=== PATIENT | female | born 1930 | race Caucasian/White ===

== ENCOUNTER 2016-08-10 11:06 | Emergency (ER) | payer OTHER ==
[~2016-08-10] VITALS: Ht 167.6 cm; Wt 81.7 kg
[~2016-08-10 11:06] MED LIST: ALTACE 1.25 M1.25 M1 PO; ASPIRIN325 PO; ATORVASTATIN CA40 MG PO; GEMFIBROZIL 60600 MG PO; GLUCOTROL5 MG PO; GLUMETZA500 PO; MIRALAX255 GM; NABUMETONE 750750 M1 PO; NASONEX17 GM NS; NEURONTIN 300300 M1 PO; OMEGA-31000 M1 PO; TRIPLE FLEX CA1 EACH PO; [UNRECOGNIZED DRUG - OTHER]
[2016-08-10 11:26] LABS: URINE BILIRUBIN NEGATIVE (Negative); URINE BLOOD 2+ (Negative); URINE COLOR YELLOW; URINE GLUCOSE-RANDOM* NEGATIVE (Negative); URINE KETONES NEGATIVE (Negative); URINE LEUKOCYTES-REFLEX 3+ (Negative); URINE PROTEIN (DIPSTICK) TRACE (Negative); URINE SPECIFIC GRAVITY <= 1.005 (1.003-1.035); URINE UROBILINOGEN 0.2 E.U./dl (0.2-1.0)
[2016-08-10] MEDS ORDERED: FLOMAX0.4 MG PO (11:43)
[2016-08-10] MEDS ORDERED: ACETAMINOPHEN-1 EAC1 PO (11:43)
[2016-08-10 11:52] LABS: AMORPHOUS URATES Moderate /LPF (None Seen); URINE WBC-REFLEX >25 Many /HPF (0-5)
[2016-08-10 11:53] LABS: CASTS None Seen /LPF (None Seen); SQUAMOUS 0-3 Few /LPF (0-3)
[2016-08-10 11:59] VITALS: BP 178/82
== END 2016-08-10 12:06 | disposition home or self-care (01) ==
LOC: ER 11:06
PROVIDERS: Emergency Medicine
DX: R33.9 Retention of urine, unspecified (principal); T37.5X5A Adverse effect of antiviral drugs, initial encounter; T40.4X5A Adverse effect of other synthetic narcotics, initial encounter; B02.9 Zoster without complications; E11.9 Type 2 diabetes mellitus without complications; I10 Essential (primary) hypertension; Z98.890 Other specified postprocedural states; Z88.2 Allergy status to sulfonamides; Y92.89 Other specified places as the place of occurrence of the external cause

== ENCOUNTER 2018-01-12 09:42 | Inpatient (IN) | payer OTHER ==
[~2018-01-12] VITALS: Ht 167.6 cm; Wt 79.9 kg
--- NOTE | ~2018-01-12 | HC ---
[facility] [place] [address] CONSULTATION Name: JASEN GREEN Room #: 451-P [facility] IN M.R.#: [id number] Admission: 01/12/18 Attend Phys: Nathanael Smith MD Discharge: 01/16/18 Date of : 30 Report #: [id number] THIS REPORT FOR: //name// CC: Janeth Darden Nathanael Smith DATE OF SERVICE: 01/13/2018 HISTORY OF PRESENT ILLNESS: This is an 87-year-old female patient who was evaluated by me for any neurological etiology for the patient's syncope. The patient lives with her daughter. They have been living together for a long time. The patient developed Alzheimer's. She was diagnosed with Alzheimer's in about 2014. She is still able to recognize close family, but otherwise, her memory is extremely poor. From all indications, it looks like she has severe dementia. Her memory has become worse recently and it was noticed about 2-3 weeks ago. Family does not know what made the memory worse, but it looks like she underwent a CT scan and that indicated that she may have had a small stroke in the frontal area. She also has multiple other issues, which are being addressed, like increased WBC count and what looks like UTI. REVIEW OF SYSTEMS: Positive for advanced dementia. She lives with her daughter. She did have some urinary problems this time. She is hard of hearing. She has a history of herpes zoster. She does appear to have a urinary tract infection with increased WBC. She has a prior hip replacement surgery. She has a history of obstructive sleep apnea and degenerative joint disease. This was her relevant 14-point review of systems. She indicates she is not having any new eye, chest, respiratory, GI, , musculoskeletal, constitutional, dermatological, hematological, psychiatric, throat or allergic symptom associated with present symptomatology. PAST MEDICAL HISTORY: Positive for dementia. FAMILY HISTORY: Negative for early age stroke. SOCIAL HISTORY: She does not drink any alcohol. PHYSICAL EXAMINATION: The patient's examination indicates that the patient is alert, responsive. She does not know what month it is. She does not know what day it is. She does not know what hospital she is in. She knew the name of the daughter, but did not know her date of . Her speech and fund of knowledge are markedly diminished. She cannot name the president. Cranial nerve examination 2-12 looks mostly unremarkable. Strength, sensation, reflexes and tone looks symmetrical. There is no cerebellar sign. I could not look at the patient's fundus. There is no meningeal sign. There is no carotid bruit. There is no thyroid mass. She is moderately obese individual, who does not have [address] [address] CONSULTATION Name: JASEN GREEN Room #: 451-P [facility] IN M.R.#: [id number] Admission: 01/12/18 Attend Phys: Nathanael Smith MD Discharge: 01/16/18 Date of : 30 Report #: [id number] any marked dysmorphic features of eyes, ears and face. Pulses are difficult to feel. No marked respiratory difficulty was noted, although some rhonchi are present on both sides. Blood pressure has fluctuated in this patient. The last one was 176/68, but it has been as low as 95. LABORATORY DATA: Labs indicate increased white count. Her GFR is 25. Her BUN and creatinine have gone up, present in the urinary tract infection. CT scan was reviewed that showed probable stroke in the right frontal area. Carotid showed bilateral disease. IMPRESSION: 1. Advanced baseline dementia. 2. Possible frontal lobe stroke. 3. Urinary tract infection which will cause encephalitis in a patient like this. This patient's present symptomatology were most likely secondary to the systemic causes including urinary tract infection, which will cause encephalopathy in a patient like this, fluctuating blood pressure and other cardiac abnormalities including vasovagal spell, which may be present. RECOMMENDATIONS: 1. EEG. 2. MRI. 3. Workup for the stroke for secondary stroke prophylaxis. 4. Treatment of systemic conditions, especially hypercholesterolemia, some hypothyroidism, UTI and looking for any cardiac or other etiology for the patient's symptoms. I discussed all of it with the patient's daughter and the patient and they understand that. Thank you very much for this referral. <ELECTRONICALLY SIGNED> By: Jorden Vasquez MD 01/20/18 1541 0901 1102 Jorden Vasquez MD /nt
--- NOTE | ~2018-01-12 | EEG ---
[facility] [place] [address] ELECTROENCEPHALOGRAM Name: JASEN GREEN Room #: 451-P [facility] IN M.R.#: [id number] Admission: 01/12/18 Attend Phys: Nathanael Smith MD Discharge: 01/16/18 Date of : 30 Report #: [id number] THIS REPORT FOR: //name// CC: Janeth Darden Nathanael Smith DATE OF SERVICE: 01/13/2018 This patient is being evaluated for altered mental status. EEG was done by placing the electrodes by standard 10-20 system of electrode placement. Both referential and sequential montages were used for recording. Background activity in this patient's EEG is about 8-9 Hz and 30 microvolt. The patient went to sleep that is associated with bilaterally symmetrical sleep spindle and vertex sharp waves. Photic stimulation is unremarkable. Throughout the record, no active epileptiform activity was noticed. IMPRESSION: This patient's EEG is intermixed with some theta range slowing on both sides. That is a nonspecific abnormality, which can occur with encephalopathy, effect of psychotropic medication, dementia, etc. Clinical correlation is recommended. <ELECTRONICALLY SIGNED> By: Jorden Vasquez MD 01/20/18 1541 0916 0944 Jorden Vasquez MD /nt
--- NOTE | ~2018-01-12 | EKG ---
[address] [place] [address] ELECTROCARDIOGRAM REPORT Name: JASEN GREEN Room #: REG Dolly#: [id number] Admission: 01/12/18 Attend Phys: Discharge: Date of : 30 Report #: [id number] THIS REPORT FOR: //name// [facility] ED Test Date: 2018-01-12 Test Time: 09:54:10 Pat Name: JASEN GREEN Department: Room: Gender: F Enrollment Manager: : 1930 Requested By: Jim Peterson Order Number: [id number] MD: Cyrus Sosa Measurements Intervals [place] Rate: 63 P: [place]: QRS: 4 QRSD: 104 T: 61 QT: 457 QTc: 468 Interpretive Statements Junctional rhythm Incomplete right bundle branch block Before meals noise present Compared to ECG 03/05/2013 05:53:14 No significant changes Electronically Signed On 01-12-2018 10:19:51 VETERINARY PHYSIOLOGIST by Cyrus Sosa [email or web address] <ELECTRONICALLY SIGNED> By: Cyrus Sosa MD 01/12/18 1019 0954 0954 Cyrus Sosa MD /JIM
--- NOTE | ~2018-01-12 | 2DMMODE ---
[facility] [address] [place] [address] 2 D/M-MODE ECHOCARDIOGRAM Name: JASEN GREEN Room #: 451-P ADM IN M.R.#: [id number] Admission: 01/12/18 Attend Phys: Nathanael Smith MD Discharge: Date of : 30 Date of Service: 01/15/18 1048 Report #: [id number] THIS REPORT FOR: //name// APPROVED REPORT Study performed: 01/15/2018 09:45:25 EXAM: Comprehensive 2D, Doppler, and color-flow Echocardiogram Patient Location: Bedside Room #: [facility] Status: routine BSA: 1.87 HR: 82 bpm BP: 134/79 mmHg Rhythm: NSR/Irregular Other Information Study Quality: Fair Technically limited study due to no patient cooperation and lung artifact with heavy snoring.. Indications CVA. Hx: DM, HTN. Echo Enhancing Agent Indication: Rule out Shunt Agent(s) / Amount(s) Used: Agitated Saline 12 cc 2D Dimensions RVDd: 30.86 mm IVSd: 13.49 (7-11mm) LVOT Diam: 18.65 (18-24mm) LVDd: 38.98 mm PWd: 8.48 (7-11mm) LVDs: 25.21 (25-40mm) Aortic Root: 31.41 mm Volumes Left Atrial Volume (Systole) Single Plane 4CH: 28.05 mL Single Plane 2CH: 37.14 mL LA ESV Index: 19.00 mL/m2 Aortic Valve AoV Peak Calvin.: 1.68 m/s AO Peak Gr.: 11.26 mmHg LVOT Max P.23 mmHg LVOT Max V: 1.52 m/s [facility] [place] [address] 2 D/M-MODE ECHOCARDIOGRAM Name: JASEN GREEN Room #: 451-P ADM IN .R.#: [id number] Admission: 01/12/18 Attend Phys: Nathanael Smith MD Discharge: Date of : 30 Date of Service: 01/15/18 1048 Report #: [id number] MICHAEL Vmax: 2.47 cm2 Mitral Valve E/A Ratio: 1.3 MV Decel. Time: 273.98 ms MV E Max Calvin.: 0.94 m/s MV A Calvin.: 0.73 m/s MV PHT: 79.45 ms IVRT: 73.82 ms Pulmonary Valve PV Peak Calvin.: 1.23 m/s PV Peak Gr.: 6.09 mmHg Tricuspid Valve TR Peak Calvin.: 3.39 m/s RAP Estimate: 5.00 mmHg TR Peak Gr.: 45.97 mmHg PA Pressure: 51.00 mmHg Left Ventricle The left ventricle is normal size. Mild basal septal hypertrophy is present. Left ventricular systolic function is normal. LVEF is 65%. This study is not technically sufficient to allow evaluation of the LV diastolic function due to limited patient cooperation. Right Ventricle The right ventricle is normal size. The right ventricular systolic function is normal. Atria The left atrium size is normal. No shunting noted by contrast bubble injection. The right atrium size is normal. Aortic Valve The Aortic valve is sclerotic. No aortic regurgitation is present. There is no aortic valvular stenosis. Mitral Valve The mitral valve is normal in structure. Mild mitral annular calcification. Trace mitral regurgitation. Tricuspid Valve The tricuspid valve is normal in structure. Mild to moderate tricuspid regurgitation. Estimated PAP is 50-55mmHg. Pulmonic Valve Pulmonic valve is not well visualized. Trace pulmonic [facility] [address] [place] [address] 2 D/M-MODE ECHOCARDIOGRAM Name: JASEN GREEN Room #: 451-P [facility] IN M.R.#: [id number] Admission: 01/12/18 Attend Phys: Nathanael Smith MD Discharge: Date of : 30 Date of Service: 01/15/18 1048 Report #: [id number] regurgitation. Great Vessels The aortic root is normal in size. Ascending aorta is not well visualized. IVC is normal in size and collapses >50% with inspiration. Pericardium There is no pericardial effusion. <Conclusion> The left ventricle is normal size. Mild basal septal hypertrophy is present. LVEF is 65%. This study is not technically sufficient to allow evaluation of the LV diastolic function due to limited patient cooperation. The right ventricle is normal size. The left atrium size is normal. The Aortic valve is sclerotic. There is no aortic valvular stenosis. The mitral valve is normal in structure. Mild mitral annular calcification. Trace mitral regurgitation. Mild to moderate tricuspid regurgitation. Estimated PAP is 50-55mmHg. The aortic root is normal in size. There is no pericardial effusion. <ELECTRONICALLY SIGNED> By: Paresh Chandler MD, FACC 01/15/18 1048 1048 1048 Paresh Chandler MD, FACC /INF
[~2018-01-12 09:42] MED LIST changes: +ACETAMINOPHEN-1 EAC1 PO; +FLOMAX0.4 MG PO
[2018-01-12 09:43] VITALS: BP 97/59
[2018-01-12] MEDS ORDERED: SENSIPAR 30 MG30 M1 PO (10:01)
[2018-01-12] MEDS ORDERED: ARICEPT 5 MG TAB5 MG PO (10:01)
[2018-01-12] MEDS ORDERED: TRADJENTA5 MG (10:01)
[2018-01-12] MEDS ORDERED: PIROXICAM20 MG PO (10:01)
[2018-01-12 10:30] LABS: ABSOLUTE NEUTROPHILS 13.2 thou/uL (1.4-8.2); BASOPHILS 0.7 % (0.0-2.0); EOSINOPHILS 3.2 % (0.0-3.0); HEMATOCRIT 40.8 % (37.0-47.0); HEMOGLOBIN 13.8 gm/dL (12.0-15.0); LYMPHOCYTES 7.5 % (24.0-44.0); MCH 30.6 pg (26.0-34.0); MCHC 33.7 g/dL (28.0-37.0); MCV 90.8 fL (80.0-100.0); MONOCYTES 4.2 % (1.0-8.0); PLATELET COUNT 269 thou/uL (150-400); POLYS 84.4 % (36.0-66.0); RBC 4.49 mil/uL (4.20-5.00); RDW 14.1 % (10.5-14.5); WBC 15.6 thou/uL (4.0-11.0)
[2018-01-12 10:31] LABS: URINE BILIRUBIN NEGATIVE (Negative); URINE BLOOD 3+ (Negative); URINE CLARITY CLOUDY; URINE COLOR YELLOW; URINE GLUCOSE-RANDOM* NEGATIVE (Negative); URINE KETONES NEGATIVE (Negative); URINE LEUKOCYTES 3+ (Negative); URINE NITRITE NEGATIVE (Negative); URINE PROTEIN (DIPSTICK) 1+ (Negative); URINE UROBILINOGEN 0.2 E.U./dl (0.2-1.0)
[2018-01-12 10:42] LABS: ANION GAP 9 mmol/L (7-16); BUN 37 mg/dL (7-18); CALCIUM 8.6 mg/dL (8.5-10.1); CHLORIDE 106 mmol/L (98-107); CO2 27 mmol/L (21-32); CREATININE 1.9 mg/dL (0.6-1.0); GLUCOSE 164 mg/dL (74-106); POTASSIUM 3.7 mmol/L (3.5-5.1); SODIUM 142 mmol/L (136-145)
[2018-01-12 10:43] LABS: AMORPHOUS URATES Many /LPF (None Seen); CASTS None Seen /LPF (None Seen); SQUAMOUS 0-3 Few /LPF (0-3); URINE RBC 3-10 Few /HPF (0-2); URINE WBC >25 Many /HPF (0-5)
[2018-01-12 10:54] LABS: SGOT 24 U/L (15-37); SGPT 29 U/L (30-65); TOTAL BILIRUBIN 0.4 mg/dL (<0.1-1.0); TOTAL PROTEIN 6.7 g/dL (6.4-8.2); TROPONIN-I <0.06 ng/mL (<0.06)
[2018-01-12 12:04] VITALS: BP 95/62
[2018-01-12 14:23] LABS: FOLIC ACID 6.8 ng/mL (8.6-58.9); TSH 8.238 uIU/mL (0.358-3.740)
[2018-01-12 15:41] VITALS: BP 116/49
[2018-01-12 16:21] VITALS: BP 93/55
[2018-01-13 03:38] VITALS: BP 106/58
[2018-01-13 06:21] LABS: CHOLESTEROL 167 mg/dL (<200); HDL CHOLESTEROL 43 mg/dL (>40); LDL CHOLESTEROL 105 mg/dL (<100); SERUM ASSESSMENT Clear; TC:HDL 3.9 Ratio (Not establshd); TRIGLYCERIDE 97 mg/dL (<150); VLDL 19 mg/dL (<40)
[2018-01-13 07:55] VITALS: BP 176/68
[2018-01-13 10:26] LABS: ABSOLUTE NEUTROPHILS 10.2 thou/uL (1.4-8.2); BASOPHILS 2.1 % (0.0-2.0); EOSINOPHILS 3.1 % (0.0-3.0); LYMPHOCYTES 13.8 % (24.0-44.0); MCH 31.1 pg (26.0-34.0); MCV 91.5 fL (80.0-100.0); MONOCYTES 4.4 % (1.0-8.0); PLATELET COUNT 280 thou/uL (150-400); POLYS 76.6 % (36.0-66.0); RBC 4.48 mil/uL (4.20-5.00); RDW 13.8 % (10.5-14.5); WBC 13.4 thou/uL (4.0-11.0)
[2018-01-13 10:30] LABS: CALCIUM 8.9 mg/dL (8.5-10.1); CREATININE 1.7 mg/dL (0.6-1.0); MAGNESIUM 1.9 mg/dL (1.8-2.4); POTASSIUM 3.6 mmol/L (3.5-5.1)
[2018-01-13 19:44] VITALS: BP 122/76
[2018-01-14 03:58] VITALS: BP 143/68
[2018-01-14 05:54] LABS: BASOPHILS 0.8 % (0.0-2.0); EOSINOPHILS 3.8 % (0.0-3.0); HEMATOCRIT 36.6 % (37.0-47.0); HEMOGLOBIN 12.4 gm/dL (12.0-15.0); LYMPHOCYTES 13.3 % (24.0-44.0); MCH 31.1 pg (26.0-34.0); MCHC 33.8 g/dL (28.0-37.0); MONOCYTES 5.9 % (1.0-8.0); PLATELET COUNT 253 thou/uL (150-400); POLYS 76.2 % (36.0-66.0); RBC 3.99 mil/uL (4.20-5.00); RDW 13.9 % (10.5-14.5); WBC 11.8 thou/uL (4.0-11.0)
[2018-01-14 06:11] LABS: CALCIUM 8.5 mg/dL (8.5-10.1); CREATININE 1.8 mg/dL (0.6-1.0); MAGNESIUM 1.8 mg/dL (1.8-2.4); POTASSIUM 3.6 mmol/L (3.5-5.1)
[2018-01-14 08:00] VITALS: BP 124/79
[2018-01-14 15:14] VITALS: BP 116/84
[2018-01-14 19:22] VITALS: BP 110/67
[2018-01-15 01:15] VITALS: BP 135/79
[2018-01-15 07:10] VITALS: BP 134/79
[2018-01-15 15:00] VITALS: BP 195/81
[2018-01-15 20:40] VITALS: BP 199/76
[2018-01-16 01:02] VITALS: BP 142/75
[2018-01-16 03:42] VITALS: BP 152/86
[2018-01-16 05:53] LABS: ABSOLUTE NEUTROPHILS 9.4 thou/uL (1.4-8.2); BASOPHILS 1.3 % (0.0-2.0); HEMATOCRIT 40.8 % (37.0-47.0); LYMPHOCYTES 9.6 % (24.0-44.0); MCHC 34.3 g/dL (28.0-37.0); MCV 90.4 fL (80.0-100.0); MONOCYTES 7.5 % (1.0-8.0); PLATELET COUNT 252 thou/uL (150-400); POLYS 77.6 % (36.0-66.0); RBC 4.52 mil/uL (4.20-5.00); WBC 12.1 thou/uL (4.0-11.0)
[2018-01-16 06:04] LABS: CALCIUM 9.3 mg/dL (8.5-10.1); CREATININE 1.6 mg/dL (0.6-1.0); MAGNESIUM 1.8 mg/dL (1.8-2.4); POTASSIUM 3.6 mmol/L (3.5-5.1)
[2018-01-16 07:16] VITALS: BP 152/90
[2018-01-16 13:53] VITALS: BP 163/95
[2018-01-16 15:45] VITALS: BP 163/95
[2018-01-16 17:25] VITALS: BP 128/76
[2018-01-16] MEDS ORDERED: ACETAMINOPHEN325 M1 PO (17:26)
[2018-01-16] MEDS ORDERED: METOPROLOL SUCC25 M1 PO (17:26)
[2018-01-16] MEDS ORDERED: CEFUROXIME250 MG PO (17:26)
[2018-01-16] MEDS ORDERED: CLOPIDOGREL75 MG PO (17:26)
[2018-01-16] MEDS ORDERED: FOLIC ACID 40400 MC1 PO (17:26)
[2018-01-16] MEDS ORDERED: PEPCID20 MG PO (17:26)
== END 2018-01-16 21:53 | disposition home health service (06) | DRG 64 ==
LOC: ER 09:42 → EROBS 12:00 → 4W 12:00
PROVIDERS: Emergency Medicine; Internal Medicine; Nurse Practitioner
DX: I63.9 Cerebral infarction, unspecified (principal); E43 Unspecified severe protein-calorie malnutrition; N17.9 Acute kidney failure, unspecified; N39.0 Urinary tract infection, site not specified; G93.49 Other encephalopathy; K59.09 Other constipation; N18.9 Chronic kidney disease, unspecified; H91.90 Unspecified hearing loss, unspecified ear; E11.22 Type 2 diabetes mellitus with diabetic chronic kidney disease; E78.00 Pure hypercholesterolemia, unspecified; E03.9 Hypothyroidism, unspecified; M62.84 Sarcopenia; E78.5 Hyperlipidemia, unspecified; I95.9 Hypotension, unspecified; E86.0 Dehydration; R19.7 Diarrhea, unspecified; I12.9 Hypertensive chronic kidney disease with stage 1 through stage 4 chronic kidney disease, or unspecified chronic kidney disease; G30.9 Alzheimer's disease, unspecified; F02.80 Dementia in other diseases classified elsewhere, unspecified severity, without behavioral disturbance, psychotic disturbance, mood disturbance, and anxiety; M19.90 Unspecified osteoarthritis, unspecified site; G47.33 Obstructive sleep apnea (adult) (pediatric); Z90.49 Acquired absence of other specified parts of digestive tract; Z98.41 Cataract extraction status, right eye; Z98.42 Cataract extraction status, left eye; Z87.891 Personal history of nicotine dependence; Z79.82 Long term (current) use of aspirin; Z79.899 Other long term (current) drug therapy; Z79.84 Long term (current) use of oral hypoglycemic drugs; Z88.2 Allergy status to sulfonamides; Z68.28 Body mass index [BMI] 28.0-28.9, adult
CPT/HCPCS: 10040; 10045

== ENCOUNTER 2018-02-10 22:46 | Inpatient (IN) | payer OTHER ==
[~2018-02-10] VITALS: Ht 167.6 cm; Wt 76.6 kg
--- NOTE | ~2018-02-10 | EKG ---
[address] [place] [address] ELECTROCARDIOGRAM REPORT Name: JASEN GREENN Room #: 238- ADM IN M.R.#: [id number] Admission: 02/11/18 Attend Phys: Salomón Mckeon MD Discharge: Date of : 30 Report #: [id number] THIS REPORT FOR: //name// [facility] Test Date: 2018-02-12 Test Time: 07:20:26 Pat Name: JASEN GREEN Department: Room: 238 Gender: F Border Patrol Agent: ABDOUL : 1930 Requested By: Deven Mota Order Number: [id number] MD: Deven Mota Measurements Intervals [place] Rate: 130 P: 0 IN: 223 QRS: 39 QRSD: 122 T: -15 QT: 351 QTc: 516 Interpretive Statements Atrial fibrillation with a rapid ventricular response Nonspecific ST and T wave abnormality Compared to ECG 02/11/2018 07:50:21 Heart rate has increased Electronically Signed On 02-12-2018 9:02:46 ACID BATH MIXER by Deven Mota [email or web address] <ELECTRONICALLY SIGNED> By: Deven Mota MD, [facility] 02/12/18901 9 9 Deven Mota MD, [facility] /EPI
--- NOTE | ~2018-02-10 | EKG ---
[address] [facility] [place] [address] ELECTROCARDIOGRAM REPORT Name: JASEN GREENN Room #: 238- ADM IN M.R.#: [id number] Admission: 02/11/18 Attend Phys: Salomón Mckeon MD Discharge: Date of : 30 Report #: [id number] THIS REPORT FOR: //name// [facility] Test Date: 2018-02-11 Test Time: 07:50:21 Pat Name: JASEN GREEN Department: Room: 238 P Gender: F Financial Data Analyst: ALIA : 1930 Requested By: Deven Mota Order Number: [id number] MD: Deven Mota Measurements Intervals [place] Rate: 96 P: CT: QRS: 4 QRSD: 90 T: -1 QT: 372 QTc: 471 Interpretive Statements Atrial fibrillation Poor R wave progression Nonspecific ST segment abnormality Compared to ECG 01/12/2018 09:54:10 Heart rate has slowed Electronically Signed On 02-11-2018 10:41:45 NUCLEAR PLANT OPERATOR by Deven Mota [email or web address] <ELECTRONICALLY SIGNED> By: Deven Mota MD, [facility] 02/11/18 1041 0750 0750 Deven Mota MD, [facility] /EPI
--- NOTE | ~2018-02-10 | HC ---
[facility] [place] [address] CONSULTATION Name: JASEN GREEN Room #: 238-P ADM IN M.R.#: [id number] Admission: 02/11/18 Attend Phys: Salomón Mckeon MD Discharge: Date of : 30 Report #: [id number] THIS REPORT FOR: //name// CC: FAM unknown Salomón Mckeon REASON FOR CONSULTATION: Atrial fibrillation. HISTORY OF PRESENT ILLNESS: The patient is an 87-year-old woman with hypertension, diabetes and advanced dementia. She has had several recent hospitalizations. The hospitalization in December was for altered mental status and possible syncope. Her history comes from the nursing staff and medical records as she is very confused, disoriented and has advanced dementia. She is unable to give much of a meaningful history. Apparently, she was sitting on the commode and slumped over. It is not clear whether she lost consciousness or not. She presented to the Emergency Department where she was in atrial fibrillation with a rapid ventricular response. I was asked to see her in this regard. After being placed on Cardizem, she had had significantly improved heart rate. She denies chest pain or pressure. She denies palpitations. She reports that her knees hurt. ALLERGIES: SHE IS ALLERGIC TO SULFA. CURRENT MEDICATIONS: Include Plavix, Pepcid, folic acid, glipizide 5 mg daily, atorvastatin 40 mg daily, gabapentin 300 mg twice daily, Tradjenta, Aricept 5 mg daily, amlodipine 2.5 mg daily. PAST MEDICAL HISTORY: Notable for appendectomy, diabetes, hypertension. Sleep apnea, on CPAP. Severe arthritis, cataract repair. SOCIAL HISTORY: She reports that she lives with her in her own home, although I do not believe this is accurate, there are reports that she lives with her daughter at home. FAMILY HISTORY: Not obtainable. REVIEW OF SYSTEMS: Not thought to be reliable. PHYSICAL EXAMINATION: GENERAL: Reveals an elderly woman who is alert. VITAL SIGNS: Blood pressure is 111/70, heart rate is 76 and irregular. She is afebrile, 5 feet 6 inches tall, 168 pounds. HEENT: There are neither xanthelasma, subcutaneous xanthomata, oral mucosal or digital cyanosis or kyphoscoliosis present. CHEST: Clear to auscultation and percussion. CARDIAC: An irregularly irregular rhythm with normal S1, S2. ABDOMEN: Soft and nontender. [facility] [address] [place] [address] CONSULTATION Name: JASEN GREEN Room #: 238-P [facility] IN M.R.#: [id number] Admission: 02/11/18 Attend Phys: Salomón Mckeon MD Discharge: Date of : 30 Report #: [id number] EXTREMITIES: Without cyanosis, clubbing or edema. Radial pulses are 2+. NEUROLOGIC: She is alert with a nonfocal exam. LABORATORY DATA: EKG: Atrial fibrillation with a rapid ventricular response. Recent echocardiogram is normal with the exception of mild aortic sclerosis and a pulmonary artery pressure of 50-55 mmHg. Sodium is 141, potassium 4.2, creatinine 1.9, which is at or near her baseline. ProBNP of 1743. Troponin 0.21. White count 17,000, hemoglobin 13, hematocrit 39, and platelet count 269. Urinalysis demonstrates greater than 25 white blood cells per high powered field. Chest x-ray is normal. Head CT demonstrates microvascular changes. IMPRESSION: 1. Atrial fibrillation with a rapid ventricular response. 2. Possible near syncope. 3. Obstructive sleep apnea, on CPAP. 4. Diabetes. 5. Dyslipidemia. 6. Advanced dementia. 7. Chronic kidney disease. 8. Urinary tract infection. RECOMMENDATIONS: Change from intravenous to oral Cardizem. I have reviewed her recent echocardiogram, which demonstrates normal systolic function. In this elderly woman with multiple comorbidities and advanced dementia with frequent falls, I believe anticoagulant therapy poses prohibitively high risk. Thank you for asking me to participate in her care. <ELECTRONICALLY SIGNED> By: Deven Mota MD, [facility] 02/11/18 1033 0747 0857 Deven Mota MD, FACC /nt
--- NOTE | ~2018-02-10 | EKG ---
[address] [address] ELECTROCARDIOGRAM REPORT Name: JASEN GREENELYN Room #: 238-P ADM IN M.R.#: [id number] Admission: 02/11/18 Attend Phys: Salomón Mckeon MD Discharge: Date of : 30 Report #: [id number] THIS REPORT FOR: //name// [facility] ED Test Date: 2018-02-10 Test Time: 22:54:11 Pat Name: JASEN GREEN Department: Room: 238 Gender: F Electronic Systems Technician: ANA : 1930 Requested By: Salomón Mckeon Order Number: [id number] MD: Deven Mota Measurements Intervals [place] Rate: 125 P: NE: QRS: 24 QRSD: 96 T: 20 QT: 361 QTc: 521 Interpretive Statements Atrial fibrillation Right ventricular conduction delay Prolonged QT interval Baseline wander in lead(s) V2 Compared to ECG 01/12/2018 09:54:10 Atrial fibrillation is replaced junctional rhythm nonspecific change in the ST and T-wave segments Electronically Signed On 02-12-2018 8:44:24 CILNICAL SCIENTIST by Deven Mota [email or web address] <ELECTRONICALLY SIGNED> By: Deven Mota MD, [facility] 02/12/18 0844 2254 2254 Deven Mota MD, [facility] /EPI
[~2018-02-10 22:46] MED LIST changes: +ACETAMINOPHEN325 M1 PO; +ARICEPT 5 MG TAB5 MG PO; +CEFUROXIME250 MG PO; +CLOPIDOGREL75 MG PO; +FOLIC ACID 40400 MC1 PO; +METOPROLOL SUCC25 M1 PO; +MIRALAX17 GM PO; -MIRALAX255 GM; +PEPCID20 MG PO; +PIROXICAM20 MG PO; +SENSIPAR 30 MG30 M1 PO; +TRADJENTA5 MG
[2018-02-10 22:48] VITALS: BP 103/70
[2018-02-11] VITALS (38 sets, daily range): BP systolic 63–144; BP diastolic 36–101
[2018-02-11 00:17] LABS: ABSOLUTE NEUTROPHILS 15.1 thou/uL (1.4-8.2); BASOPHILS 0.7 % (0.0-2.0); EOSINOPHILS 0.8 % (0.0-3.0); HEMATOCRIT 39.6 % (37.0-47.0); HEMOGLOBIN 13.3 gm/dL (12.0-15.0); LYMPHOCYTES 5.1 % (24.0-44.0); MCH 30.9 pg (26.0-34.0); MCHC 33.6 g/dL (28.0-37.0); MCV 91.8 fL (80.0-100.0); MONOCYTES 4.9 % (1.0-8.0); PLATELET COUNT 267 thou/uL (150-400); POLYS 88.5 % (36.0-66.0); RBC 4.31 mil/uL (4.20-5.00); RDW 13.9 % (10.5-14.5); WBC 17.1 thou/uL (4.0-11.0)
[2018-02-11] MEDS ORDERED: NORVASC2.5 MG PO (00:27)
[2018-02-11 00:31] LABS: ANION GAP 11 mmol/L (7-16); BUN 45 mg/dL (7-18); CALCIUM 8.5 mg/dL (8.5-10.1); CHLORIDE 106 mmol/L (98-107); CO2 24 mmol/L (21-32); CREATININE 1.9 mg/dL (0.6-1.0); GLUCOSE 134 mg/dL (74-106); POTASSIUM 4.2 mmol/L (3.5-5.1); SODIUM 141 mmol/L (136-145)
[2018-02-11 00:38] LABS: ALBUMIN 3.2 g/dL (3.4-5.0); DIRECT BILIRUBIN < 0.1 mg/dL (<0.1-0.3); LIPASE 401 U/L (73-393); SGOT 24 U/L (15-37); SGPT 18 U/L (30-65); TOTAL BILIRUBIN 0.4 mg/dL (<0.1-1.0); TOTAL PROTEIN 6.9 g/dL (6.4-8.2); TROPONIN-I 0.21 ng/mL (<0.06)
[2018-02-11 01:33] LABS: APTT 25.4 Seconds (24.5-32.8); PROTIME 9.9 Seconds (9.3-11.4)
[2018-02-11 12:48] LABS: URINE BILIRUBIN NEGATIVE (Negative); URINE BLOOD TRACE (Negative); URINE CLARITY SL CLOUDY; URINE COLOR YELLOW; URINE GLUCOSE-RANDOM* NEGATIVE (Negative); URINE KETONES NEGATIVE (Negative); URINE NITRITE-REFLEX NEGATIVE (Negative); URINE PROTEIN (DIPSTICK) NEGATIVE (Negative); URINE UROBILINOGEN 0.2 E.U./dl (0.2-1.0)
[2018-02-11 12:49] LABS: URINE LEUKOCYTES-REFLEX 2+ (Negative)
[2018-02-11 12:58] LABS: BACTERIA-REFLEX 1-9 Few /HPF (None Seen); CASTS None Seen /LPF (None Seen); CRYSTALS None Seen /LPF (None Seen); SQUAMOUS 0-3 Few /LPF (0-3); URINE RBC None Seen /HPF (0-2); URINE WBC-REFLEX 6-15 Few /HPF (0-5)
[2018-02-11 16:23] LABS: CALCIUM 7.7 mg/dL (8.5-10.1); CREATININE 1.7 mg/dL (0.6-1.0); POTASSIUM 3.9 mmol/L (3.5-5.1)
[2018-02-12] VITALS (8 sets, daily range): BP systolic 100–169; BP diastolic 58–140
[2018-02-12] MEDS ORDERED: SONATA5 M1 PO (14:03)
[2018-02-12] MEDS ORDERED: VITAMIN B-12500 MCG PO (14:04)
[2018-02-12] MEDS ORDERED: VITAMIN D1000 UNI1 PO (14:04)
[2018-02-12] MEDS ORDERED: PEPCID AC10 MG PO (14:05)
[2018-02-12 17:56] LABS: HEMATOCRIT 38.3 % (37.0-47.0); MCH 31.1 pg (26.0-34.0); MCHC 33.9 g/dL (28.0-37.0); MCV 91.9 fL (80.0-100.0); RBC 4.16 mil/uL (4.20-5.00)
[2018-02-12 18:10] LABS: CALCIUM 8.4 mg/dL (8.5-10.1); CREATININE 1.6 mg/dL (0.6-1.0); MAGNESIUM 1.7 mg/dL (1.8-2.4); POTASSIUM 4.5 mmol/L (3.5-5.1); TOTAL BILIRUBIN 0.3 mg/dL (<0.1-1.0); TOTAL PROTEIN 6.7 g/dL (6.4-8.2)
[2018-02-13] VITALS (11 sets, daily range): BP systolic 77–152; BP diastolic 44–110
[2018-02-13 05:11] LABS: HEMATOCRIT 37.5 % (37.0-47.0); HEMOGLOBIN 12.4 gm/dL (12.0-15.0); MCH 30.3 pg (26.0-34.0); MCHC 33.2 g/dL (28.0-37.0); MCV 91.4 fL (80.0-100.0); RBC 4.1 mil/uL (4.20-5.00); RDW 14.2 % (10.5-14.5); WBC 11.5 thou/uL (4.0-11.0)
[2018-02-13 05:19] LABS: CALCIUM 8.5 mg/dL (8.5-10.1); CREATININE 1.7 mg/dL (0.6-1.0); MAGNESIUM 1.6 mg/dL (1.8-2.4); POTASSIUM 4.1 mmol/L (3.5-5.1)
[2018-02-14] VITALS (13 sets, daily range): BP systolic 96–128; BP diastolic 59–87
[2018-02-14 05:37] LABS: HEMATOCRIT 38.7 % (37.0-47.0); HEMOGLOBIN 12.8 gm/dL (12.0-15.0); MCH 30.2 pg (26.0-34.0); MCV 91.6 fL (80.0-100.0); RBC 4.22 mil/uL (4.20-5.00); RDW 14.1 % (10.5-14.5); WBC 12.3 thou/uL (4.0-11.0)
[2018-02-14 06:01] LABS: CALCIUM 8.7 mg/dL (8.5-10.1); CREATININE 1.9 mg/dL (0.6-1.0); MAGNESIUM 1.7 mg/dL (1.8-2.4); POTASSIUM 4.2 mmol/L (3.5-5.1)
[2018-02-14 15:12] LABS: BE(vivo) -2.7 mmol/L (-2 to +3); HCO3 21.1 mmol/L (22.0-26.0); PCO2 33.8 mmHg (35.0-45.0); PO2 84.3 mmHg (80.0-100.0); pH 7.414 (7.360-7.450); sO2 96.6 % (92.0-98.0)
[2018-02-15] VITALS (14 sets, daily range): BP systolic 70–174; BP diastolic 35–121
[2018-02-15 04:47] LABS: CALCIUM 9.1 mg/dL (8.5-10.1); CREATININE 1.6 mg/dL (0.6-1.0); MAGNESIUM 1.8 mg/dL (1.8-2.4)
[2018-02-15 05:51] LABS: HEMATOCRIT 39.9 % (37.0-47.0); HEMOGLOBIN 13.5 gm/dL (12.0-15.0); MCH 30.7 pg (26.0-34.0); MCHC 33.8 g/dL (28.0-37.0); MCV 90.8 fL (80.0-100.0); RBC 4.39 mil/uL (4.20-5.00); WBC 9.7 thou/uL (4.0-11.0)
[2018-02-16 05:45] LABS: HEMATOCRIT 38.2 % (37.0-47.0); HEMOGLOBIN 12.9 gm/dL (12.0-15.0); MCH 30.7 pg (26.0-34.0); MCHC 33.7 g/dL (28.0-37.0); MCV 91.4 fL (80.0-100.0); RBC 4.18 mil/uL (4.20-5.00); RDW 14.1 % (10.5-14.5); WBC 11.3 thou/uL (4.0-11.0)
[2018-02-16 05:58] LABS: CALCIUM 8.7 mg/dL (8.5-10.1); CREATININE 1.8 mg/dL (0.6-1.0); MAGNESIUM 1.8 mg/dL (1.8-2.4); POTASSIUM 3.9 mmol/L (3.5-5.1)
[2018-02-16 08:10] VITALS: BP 206/83
[2018-02-16] MEDS ORDERED: KEFLEX500 M1 PO (16:27)
[2018-02-16] MEDS ORDERED: CARDIZEM CD240 MG PO (16:30)
== END 2018-02-16 17:06 | DRG 871 ==
LOC: ER 22:46 → ICU 02-11 02:02 → EROBS 02-11 02:02 → ICU 02-11 03:36 → 4W 02-15 18:22
PROVIDERS: Emergency Medicine; Internal Medicine
DX: A41.9 Sepsis, unspecified organism (principal); G93.41 Metabolic encephalopathy; N39.0 Urinary tract infection, site not specified; I48.91 Unspecified atrial fibrillation; M19.90 Unspecified osteoarthritis, unspecified site; K59.09 Other constipation; I95.9 Hypotension, unspecified; E86.0 Dehydration; G47.33 Obstructive sleep apnea (adult) (pediatric); F03.90 Unspecified dementia, unspecified severity, without behavioral disturbance, psychotic disturbance, mood disturbance, and anxiety; E11.22 Type 2 diabetes mellitus with diabetic chronic kidney disease; N18.3 Chronic kidney disease, stage 3 (moderate); E78.5 Hyperlipidemia, unspecified; E11.40 Type 2 diabetes mellitus with diabetic neuropathy, unspecified; Z90.49 Acquired absence of other specified parts of digestive tract; Z98.41 Cataract extraction status, right eye; Z98.42 Cataract extraction status, left eye; Z87.891 Personal history of nicotine dependence; Z88.2 Allergy status to sulfonamides; Z86.73 Personal history of transient ischemic attack (TIA), and cerebral infarction without residual deficits
CPT/HCPCS: 10045; 10078

== ENCOUNTER 2018-03-18 11:38 | Inpatient (IN) | payer OTHER ==
[~2018-03-18] VITALS: Ht 162.6 cm; Wt 83.9 kg
[~2018-03-18 11:38] MED LIST changes: +CARDIZEM CD240 MG PO; +KEFLEX500 M1 PO; +NORVASC2.5 MG PO; +PEPCID AC10 MG PO; +SONATA5 M1 PO; +VITAMIN B-12500 MCG PO; +VITAMIN D1000 UNI1 PO
[2018-03-18 11:43] VITALS: BP 196/120
--- NOTE | 2018-03-18 12:13 | EKG ---
[address] [place] [address] ELECTROCARDIOGRAM REPORT Name: JASEN GREEN Room #: [facility].#: [id number] Admission: Attend Phys: Discharge: Date of : 30 Report #: [id number] THIS REPORT FOR: //name// [facility] ED Test Date: 2018-03-18 Test Time: 12:03:21 Pat Name: JASEN GREEN Department: Room: Gender: F Elementary Special Education Teacher: MORENA : 1930 Requested By: Ed Galdamez Order Number: [id number] MD: Deven Mota Measurements Intervals [place] Rate: 152 P: [place]: QRS: 84 QRSD: 101 T: -11 QT: 307 QTc: 488 Interpretive Statements Atrial fibrillation with rapid V-rate Repolarization abnormality, prob rate related Compared to ECG 02/12/2018 07:20:26 No significant change was found Electronically Signed On 03-18-2018 12:13:26 ARTISTS' BOOKING REPRESENTATIVE by Deven Mota [email or web address] <ELECTRONICALLY SIGNED> By: Deven Mota MD, [facility] 03/18/18 1213 1203 1203 Deven Mota MD, FACC /EPI
[2018-03-18 12:30] LABS: HEMATOCRIT 39.5 % (37.0-47.0); HEMOGLOBIN 13.4 gm/dL (12.0-15.0); MCH 31.4 pg (26.0-34.0); MCV 92.4 fL (80.0-100.0); PLATELET COUNT 346 thou/uL (150-400); RBC 4.27 mil/uL (4.20-5.00); RDW 15.2 % (10.5-14.5); WBC 16.4 thou/uL (4.0-11.0)
[2018-03-18 12:42] LABS: ANION GAP 10 mmol/L (7-16); BUN 29 mg/dL (7-18); CALCIUM 8.7 mg/dL (8.5-10.1); CHLORIDE 97 mmol/L (98-107); CO2 27 mmol/L (21-32); CREATININE 1.9 mg/dL (0.6-1.0); GLUCOSE 186 mg/dL (74-106); POTASSIUM 4.9 mmol/L (3.5-5.1); SODIUM 134 mmol/L (136-145)
[2018-03-18 12:48] LABS: ALBUMIN 3.3 g/dL (3.4-5.0); SGOT 41 U/L (15-37); SGPT 50 U/L (30-65); TOTAL BILIRUBIN 0.6 mg/dL (<0.1-1.0); TOTAL PROTEIN 7.8 g/dL (6.4-8.2); TROPONIN-I <0.06 ng/mL (<0.06)
[2018-03-18 13:04] LABS: URINE BILIRUBIN NEGATIVE (Negative); URINE CLARITY CLOUDY; URINE COLOR YELLOW; URINE GLUCOSE-RANDOM* NEGATIVE (Negative); URINE KETONES NEGATIVE (Negative); URINE PROTEIN (DIPSTICK) 1+ (Negative)
[2018-03-18 13:05] LABS: URINE BLOOD 1+ (Negative); URINE LEUKOCYTES-REFLEX 2+ (Negative); URINE NITRITE-REFLEX NEGATIVE (Negative); URINE UROBILINOGEN 0.2 E.U./dl (0.2-1.0)
[2018-03-18 13:06] LABS: ABSOLUTE NEUTROPHILS 15.7 thou/uL (1.4-8.2); METAMYELOCYTES 1 %; MYELOCYTES 1 %
[2018-03-18 13:14] LABS: CASTS None Seen /LPF (None Seen); CRYSTALS None Seen /LPF (None Seen); SQUAMOUS None Seen /LPF (0-3); URINE RBC 0-2 Rare /HPF (0-2); URINE WBC-REFLEX >25 Many /HPF (0-5); WBC CLUMPS Moderate (None Seen)
[2018-03-18 14:00] VITALS: BP 129/87
[2018-03-18 14:15] VITALS: BP 128/79
[2018-03-18 14:30] VITALS: BP 134/82
--- NOTE | 2018-03-18 15:53 | NUR ---
PT CARE ASSUMED AT APPROX 1430. PT ADMITTED FROM ED FOR AFIB W/RVR AND CHF. DAUGHTER ARRIVED TO UNIT WITH PT. MED LIST PROVIDED. DAUGHTER REPORTS HAVING DPOA. PT IS ALERT AND ORIENTED TO SELF AND SITUATION. CONFUSED AT THIS TIME. DAUGHTER REPORTS THIS PT'S BASELINE NEURO STATUS. FOLLOWING COMMANDS. DENIES PAIN AND SOA. HR ELEVATED AND CARD GTT TITRATED UP TO 15. VS OTHERWISE STABLE. PT RECEIVED SECOND DOSE OF LASIX AND WAITING FOR PHARMACY TO SEND UP IV ABT TO ADMIN. DAUGHTER AND PT DENY QUESTIONS OR CONCERNS REGARDING POC. NO DISTRESS NOTED.
--- NOTE | 2018-03-18 17:56 | NUR ---
CARD GTT STOPPED AFTER PO DILT ADMIN. VSS. CPAP ORDERS ENTERED. RT AWARE. NO DISTRESS NOTED AT THIS TIME.
[2018-03-18 19:46] VITALS: BP 136/83
[2018-03-18 23:19] VITALS: BP 82/52
[2018-03-19 03:48] LABS: CALCIUM 8.4 mg/dL (8.5-10.1); CREATININE 1.7 mg/dL (0.6-1.0); MAGNESIUM 1.8 mg/dL (1.8-2.4)
[2018-03-19 04:07] LABS: POTASSIUM 3.8 mmol/L (3.5-5.1)
[2018-03-19 04:09] LABS: HEMATOCRIT 34.3 % (37.0-47.0); HEMOGLOBIN 11.7 gm/dL (12.0-15.0); MCH 31.1 pg (26.0-34.0); MCV 91.3 fL (80.0-100.0); RBC 3.76 mil/uL (4.20-5.00); RDW 15.4 % (10.5-14.5); WBC 8.3 thou/uL (4.0-11.0)
[2018-03-19 05:10] VITALS: BP 140/87
--- NOTE | 2018-03-19 06:11 | NUR ---
ASSUMED CARE 1899. PT ALERT AND ORIENTED X 1. PT REORIENTED. DAUGHTER AT BEDSIDE. COURSE, AND WHEEZING IN LUNG SEGOVIA. PT ON IV LASIX. BLE EDEMA 2-3+.
[2018-03-19 07:10] VITALS: BP 113/74
--- NOTE | 2018-03-19 09:16 | EKG ---
[address] [address] [facility] [place] [address] ELECTROCARDIOGRAM REPORT Name: JASEN GREEN Room #: 201-P ADM IN M.R.#: [id number] Admission: 03/18/18 Attend Phys: Edenilson Trujillo MD Discharge: Date of : 30 Report #: [id number] THIS REPORT FOR: //name// [facility] ED Test Date: 2018-03-18 Test Time: 12:52:29 Pat Name: JASEN GREEN Department: Room: 201 Gender: F Pulmonary Fellow: : 1930 Requested By: Ed Galdamez Order Number: [id number] MD: Deven Mota Measurements Intervals [place] Rate: 127 P: [place]: QRS: 23 QRSD: 97 T: 2 QT: 361 QTc: 525 Interpretive Statements Atrial fibrillation RSR' in V1 or V2, right VCD Compared to ECG 03/18/2018 12:03:21 Right ventricular hypertrophy now present Heart rate has slowed Electronically Signed On 03-19-2018 9:16:25 FIRE EXTINGUISHER REPAIRER INSPECTOR by Deven Mota [email or web address] <ELECTRONICALLY SIGNED> By: Deven Mota MD, [facility] 03/19/18 0916 125 51 Deven Mota MD, [facility] /EPI
--- NOTE | 2018-03-19 09:21 | EKG ---
[address] [place] [address] ELECTROCARDIOGRAM REPORT Name: JASEN GREEN Room #: 201-P ADM IN M.R.#: [id number] Admission: 03/18/18 Attend Phys: Edenilson Trujillo MD Discharge: Date of : 30 Report #: [id number] THIS REPORT FOR: //name// [facility] Test Date: 2018-03-19 Test Time: 06:44:27 Pat Name: JASEN GREEN Department: Room: 201 P Gender: F Welding Lead Burner: ABDOUL : 1930 Requested By: Deven Mota Order Number: [id number] MD: Deven Mota Measurements Intervals [place] Rate: 85 P: [place]: QRS: 19 QRSD: 92 T: 8 QT: 411 QTc: 489 Interpretive Statements Atrial fibrillation RSR' in V1 or V2, right VCD Borderline prolonged QT interval Compared to ECG 03/18/2018 12:03:21 Ventricular response has slowed Electronically Signed On 03-19-2018 9:21:45 FIELD APPLICATIONS SPECIALIST by Deven Mota [email or web address] <ELECTRONICALLY SIGNED> By: Deven Mota MD, [facility] 03/19/18920 0644 Deven Mota MD, [facility] /EPI
[2018-03-19 11:35] VITALS: BP 165/62
[2018-03-19 15:40] VITALS: BP 190/88
--- NOTE | 2018-03-19 16:42 | NUR ---
Met with patient and dtr at bedside. patient with recent dc from [facility] 02/11/18-02/16/18 patient went to [facility] for post acute care and dc home with HH [facility]. Patient home approx 3 days and readmit. Dtr reports patient has walker, cpap, chair lift and rails to assist getting up from commode. Dtr reports she was retaing fluid at [facility] in [place] and mentioned to staff. She questions if she was rec her heart medication. 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 Plan for home with resumed HH via [facility]. therapy evals in process.
--- NOTE | 2018-03-19 17:00 | NUR ---
PT HAD HIGH BP AT 1600 CHECK OF 190/88. MANUAL BP 185/90. CALLED DR. DAVILA AND HE ORDERED COREG 6.25MG BID. WILL CONT TO MONITOR BLOOD PRESSURE.
--- NOTE | 2018-03-19 20:48 | NUR ---
ASSSUMED CARE OF PT AT 0700. PT ALERT AND ORIENTED TO SELF ONLY. PT MOSTLY COOPERATIVE AND PLEASANT BUT WAS AGITATED IN THE AFTERNOON. PT EASILY CALMED DOWN WITH REASURANCE. 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 PT BLOOD PRESSURE HIGH IN AFTERNOON (MANUAL CHECK ALSO DONE) AND DR. DAVILA ORDERED MEDICATION. PT WAS AFIB ON TELEMETRY. PT TITRATED DOWN TO 0.5L OXYGEN AND MAINTAIN O2 SAT >92%. PT LUNGS SOUND CONGESTED AND PT COUGH EFFORT IS POOR. PT UP TO CHAIR AND DAUGHTER AT THE BEDSIDE MOST OF DAY. WILL CONT WITH POC.
[2018-03-19] MEDS ORDERED: MUCINEX600 MG PO (23:13)
[2018-03-20 03:28] LABS: CALCIUM 8.2 mg/dL (8.5-10.1)
--- NOTE | 2018-03-20 03:40 | NUR ---
ASSUMED PT CARE AT 1900. PT ORIENTED TO SELF, VERY [place] OF [place] WITH BILATERAL HEARING AIDS. VITAL SIGNS STABLE, ASSESSMENT CHARTED. PT HAD AN EPISODE OF NAUSEA AND VOMITING, ZOFRAN GIVEN, NO FURTHER COMPLAINTS. NO COMPLAINTS OF PAIN/CHEST PAIN. PT ESTED WELL THROUGH THE NIGHT. USED CPAP AT HS. PROGRESSING TOWARD PLAN OF CARE. WILL CONTINUE TO MONITOR.
[2018-03-20 04:18] VITALS: BP 92/54
[2018-03-20 07:15] VITALS: BP 164/54
--- NOTE | 2018-03-20 08:20 | HC ---
[facility] [place] [address] CONSULTATION Name: JASEN GREEN Room #: 201-P ADM IN M.R.#: [id number] Admission: 03/18/18 Attend Phys: Edenilson Trujillo MD Discharge: Date of : 30 Report #: [id number] THIS REPORT FOR: //name// CC: Edenilson Darden REASON FOR CONSULTATION: Shortness of breath, atrial fibrillation. HISTORY OF PRESENT ILLNESS: The patient is an 87-year-old woman with hypertension, diabetes, chronic kidney disease and permanent atrial fibrillation. She was hospitalized. She has had several recent hospitalizations. During her hospitalization in mid January, she was found to be in atrial fibrillation with a rapid ventricular response. She was placed on Cardizem and had significant and improved rate control. She was transitioned to rehab center and was doing well. Her daughter who is with her today, provides all of the history. She brings with her list of medicines from the rehab center and Cardizem CD was not on her list of medicines, which had been prescribed during her January hospitalization. Over the past several days, she has noticed increasing lower extremity edema. She has had a nonproductive cough with audible wheezing. She does report that an upper respiratory tract viral illness was going around the rehab center and she is not certain if her mother was also affected by this. No chest pain or pressure. ALLERGIES: No near syncope or syncope. MEDICATIONS: Include atorvastatin 40 mg daily, Plavix; diltiazem CD 240 mg daily, although she had not been on this; Aricept, Pepcid, Tradjenta, glipizide 5 mg at breakfast. PAST MEDICAL HISTORY: Notable for hypertension, sleep apnea, diabetes, chronic kidney disease, severe arthritis. SOCIAL HISTORY: Lives with her daughter. FAMILY HISTORY: Not thought to be reliable. REVIEW OF SYSTEMS: Not reliable. PHYSICAL EXAMINATION: GENERAL: Reveals a pleasant, demented woman who is alert. She appears in no distress. VITAL SIGNS: Blood pressure is 134/82, heart rate of 68 and irregular. She is afebrile. Weight is 194 pounds. Her discharge weight a month ago was 168 pounds. HEENT: There IS neither xanthelasma, subcutaneous xanthomata, oral mucosal or digital cyanosis or kyphoscoliosis present. CHEST: Reveals diminished breath sounds at both bases. Expiratory wheezes are [facility] [address] [place] [address] CONSULTATION Name: JASEN GREEN Room #: 201-P [facility] IN M.R.#: [id number] Admission: 03/18/18 Attend Phys: Edenilson Trujillo MD Discharge: Date of : 30 Report #: [id number]. CARDIAC: Reveals an irregularly irregular rhythm with normal S1, S2. ABDOMEN: Soft and nontender. EXTREMITIES: Reveal 1-2+ pitting edema. Radial pulses are 2+. NEUROLOGIC: She is alert and disoriented with a nonfocal exam. LABORATORY DATA: Sodium 134, potassium 4.9, creatinine 1.9. ProBNP of 9407. White count 16,000, hemoglobin 13, hematocrit 39, and platelet count 346. Echocardiogram in December demonstrated normal left ventricular systolic function and moderate pulmonary hypertension, pulmonary artery pressure of 50 mmHg. IMAGING DATA: Chest x-ray demonstrates congestive heart failure. DIAGNOSTIC DATA: EKG: Atrial fibrillation with a rapid ventricular response, nonspecific ST-segment abnormality. IMPRESSION: 1. Atrial fibrillation, permanent. 2. Kotxw-kw-pkuzjvm diastolic heart failure. 3. Sleep apnea, on CPAP. 4. Diabetes. 5. Dyslipidemia. 6. Chronic kidney disease. 7. Advanced dementia. RECOMMENDATIONS: 1. Resume Cardizem. 2. Diuresis. 3. I am not certain why her Cardizem was discontinued, although a rate controlling medicine will be required. High ventricular response with atrial fibrillation would explain her current representation. I have discussed these issues with her daughter. Thank you for asking me to participate in her care. <ELECTRONICALLY SIGNED> By: Deven Mota MD, FACC 03/20/18 0820 1533 [id number] Deven Mota MD, FACC /nt
[2018-03-20] MEDS ORDERED: DEMADEX20 MG PO (08:59)
[2018-03-20 11:05] VITALS: BP 141/55
[2018-03-20 15:30] VITALS: BP 135/64
[2018-03-20 15:49] VITALS: BP 141/55
--- NOTE | 2018-03-20 16:00 | NUR ---
sp with therapy, dtr and patient. Dtr interested in skilled as patient could benefit from further therapy prior to home. Dtr interested in [facility], sent referral for review.
--- NOTE | 2018-03-20 16:41 | NUR ---
FAXED REFERRAL TO J SPOKE WITH ANI IN ADM. SHE RECEIVED REFERRAL AND WILL REVIEW. ANTICIPATE DC TOMORROW 03/21. DCP TO FOLLOW.
[2018-03-20 19:20] VITALS: BP 113/80
--- NOTE | 2018-03-20 22:43 | NUR ---
Pt transferred to unit at 1845,oriented to room and sorroundings.Pt's dtr at the bedside with her during transfer. Pt alert to self only,pleasantly confused.SELDOVIA with bilateral hearing aids.VSS.Denies pain on assessment. Incontinent of B&B. Wears a CPAP at night but on O2 right now at 2L/NC. LS with wheezes and coarse,has a non productive cough. Will continue to monitor pt.
[2018-03-21 08:26] VITALS: BP 134/80
[2018-03-21] MEDS ORDERED: CIPRO500 MG PO (13:11)
--- NOTE | 2018-03-21 14:53 | NUR ---
Role Patel working to obtain auth for post acute care updated dtr at bedside.
--- NOTE | 2018-03-21 15:48 | NUR ---
JUST SPOKE WITH HARRIET IN ADM. AT [facility] AND SHE HAS AUTH FOR PT. SHE IS ARRANGING TRANSPORTATION [facility]IA [facility] ([employer]) FOR [phone] TODAY. WILL FAX DC ORDERS ONCE AVAILABLE. DCP TO FOLLOW.
--- NOTE | 2018-03-21 16:06 | NUR ---
PATIENT TO DC TO [facility] THIS EVENING BETWEEN [phone] VIA [employer] [facility]. DTR UPDATED AT BEDSIDE WELL RN. REQUESTED SHE RECEIVE EVENING MEDICATIONS PRIOR TO DC.
--- NOTE | 2018-03-21 16:36 | NUR ---
PT. DISCHARGING TODAY TO [facility] FAXED DC ORDERS/SUMMARY TO FACILITY AND SPOKE WITH SUKI IN ADM. SHE RECEIVED DC ORDERS. TRANSPORTATION ARRANGED [facility]IA [facility] BY FACILITY FOR [phone]. FAMILY NOTIFIED BY SW. UNIT NOTIFIED AND CHART COPY PER US. RN TO CALL REPORT TO [phone] .
--- NOTE | 2018-03-21 19:42 | NUR ---
ASSUMED CARE OF PATIENT AT 0715, PATIENT ALERT AND ORIENTED X 1. UP WITH ASSIST X 1-2 WITH GAIT BELT AND WALKER. PATIENT IS HARD OF HEARING, WITH BILATERAL HEARING AIDS. NO C/O PAIN THIS SHIFT. PATIENT INCONTINENT OF URINE/BOWEL. PATIENT HAS 02 AT 2 LITERS/NC IN PLACE, BILATERAL LUNGS COARSE, PATIENT HAS NON-PRODUCTIVE COUGH. PATIENT HAD RIGHT FOREARM IV IN PLACE, REMOVED PRIOR TO DISCHARGE. PATIENT WORKED WITH PHYSICAL THERAPY/OT. PATIENT DISCHARGED TO [facility], ATTEMPTED TO CALL REPORT, WAS TRANSFERRED AND NO ANSWER. DAUGHTER PRESENT ON DISCHARGE. ALL DISCHARGE PAPERWORK AND ALL PERSONAL BELONGINGS SENT WITH THE PATIENT.
== END 2018-03-21 19:47 | DRG 871 ==
LOC: ER 11:38 → EROBS 13:29 → 2N 13:29 → SICU 03-20 18:52
PROVIDERS: Emergency Medicine; Internal Medicine; ADMIT Hospitalist
DX: A41.9 Sepsis, unspecified organism (principal); I50.33 Acute on chronic diastolic (congestive) heart failure; I13.0 Hypertensive heart and chronic kidney disease with heart failure and stage 1 through stage 4 chronic kidney disease, or unspecified chronic kidney disease; N39.0 Urinary tract infection, site not specified; N17.9 Acute kidney failure, unspecified; E11.22 Type 2 diabetes mellitus with diabetic chronic kidney disease; F03.90 Unspecified dementia, unspecified severity, without behavioral disturbance, psychotic disturbance, mood disturbance, and anxiety; G47.33 Obstructive sleep apnea (adult) (pediatric); M19.90 Unspecified osteoarthritis, unspecified site; N18.3 Chronic kidney disease, stage 3 (moderate); B95.2 Enterococcus as the cause of diseases classified elsewhere; M62.84 Sarcopenia; E03.9 Hypothyroidism, unspecified; G47.00 Insomnia, unspecified; E11.40 Type 2 diabetes mellitus with diabetic neuropathy, unspecified; K59.09 Other constipation; E78.5 Hyperlipidemia, unspecified; I48.2 Chronic atrial fibrillation; Z88.2 Allergy status to sulfonamides; Z87.891 Personal history of nicotine dependence; Z79.899 Other long term (current) drug therapy; Z99.81 Dependence on supplemental oxygen; Z98.42 Cataract extraction status, left eye; Z98.41 Cataract extraction status, right eye; Z86.73 Personal history of transient ischemic attack (TIA), and cerebral infarction without residual deficits; Z91.81 History of falling
CPT/HCPCS: 10081; 15002

== ENCOUNTER 2018-05-17 16:39 | Inpatient (IN) | payer OTHER ==
[~2018-05-17] VITALS: Ht 162.6 cm; Wt 75.7 kg
[~2018-05-17 16:39] MED LIST changes: +CIPRO500 MG PO; +DEMADEX20 MG PO; +MUCINEX600 MG PO
[2018-05-17 16:40] VITALS: BP 90/51
[2018-05-17 17:10] LABS: ABSOLUTE NEUTROPHILS 7.8 thou/uL (1.4-8.2); BASOPHILS 1.2 % (0.0-2.0); EOSINOPHILS 2.3 % (0.0-3.0); HEMATOCRIT 41.5 % (37.0-47.0); HEMOGLOBIN 14.1 gm/dL (12.0-15.0); LYMPHOCYTES 9.7 % (24.0-44.0); MCH 29.9 pg (26.0-34.0); MONOCYTES 6.3 % (1.0-8.0); PLATELET COUNT 309 thou/uL (150-400); POLYS 80.5 % (36.0-66.0); RBC 4.72 mil/uL (4.20-5.00); RDW 15.3 % (10.5-14.5); WBC 9.7 thou/uL (4.0-11.0)
[2018-05-17 17:13] LABS: CALCIUM 10.6 mg/dL (8.5-10.1); CREATININE 2.1 mg/dL (0.6-1.0); POTASSIUM 4.1 mmol/L (3.5-5.1)
[2018-05-17 17:19] LABS: ALBUMIN 3.3 g/dL (3.4-5.0); TOTAL BILIRUBIN 0.4 mg/dL (<0.1-1.0); TOTAL PROTEIN 7.7 g/dL (6.4-8.2)
--- NOTE | 2018-05-17 18:10 | EKG ---
[place] [address] [facility] [address] [place] [address] ELECTROCARDIOGRAM REPORT Name: JASEN GREEN [id number] ������������������ Admission: 05/17/18 ������������������ Attend Phys: Discharge: ������������������ Date of : 30 Report #: [id number] ����������������������������������������������������������������� [id number] THIS REPORT FOR: //name// [facility] ED Test Date: 2018-05-17 Test Time: 16:48:42 Pat Name: JASEN GREEN Department: Room: Gender: F Marine Mechanic: WG : 1930 Requested By: Eben Mei Order Number: [id number] MD: Deven Mota Measurements Intervals [place] Rate: 77 P: [place]: QRS: 10 QRSD: 104 T: -3 QT: 407 QTc: 461 Interpretive Statements Atrial fibrillation Borderline T abnormalities, inferior leads Compared to ECG 03/19/2018 06:44:27 No significant change was found Electronically Signed On 05-17-2018 18:10:50 CDT by Deven Mota [email or web address] ��������������������������������������������� <ELECTRONICALLY SIGNED> ���������������������������������������� By: Deven Mota MD, [facility] ��������������������������������������������� 05/17/18 1810 1648 1648 Deven Mota MD, FACC /EPI
[2018-05-17 19:15] LABS: URINE BILIRUBIN NEGATIVE (Negative); URINE BLOOD 2+ (Negative); URINE CLARITY CLOUDY; URINE COLOR YELLOW; URINE GLUCOSE-RANDOM* NEGATIVE (Negative); URINE KETONES NEGATIVE (Negative); URINE NITRITE-REFLEX NEGATIVE (Negative); URINE PROTEIN (DIPSTICK) 2+ (Negative); URINE UROBILINOGEN 0.2 E.U./dl (0.2-1.0)
[2018-05-17 19:18] LABS: URINE LEUKOCYTES-REFLEX 3+ (Negative)
[2018-05-17 19:26] LABS: CASTS None Seen /LPF (None Seen); CRYSTALS None Seen /LPF (None Seen); SQUAMOUS 4-10 Moderate /LPF (0-3); URINE RBC 0-2 Rare /HPF (0-2); URINE WBC-REFLEX >25 Many /HPF (0-5)
[2018-05-17 21:39] VITALS: BP 110/51
[2018-05-17 22:38] VITALS: BP 111/74
[2018-05-18] MEDS ORDERED: GLUCOTROL5 MG PO (00:27)
[2018-05-18] MEDS ORDERED: FELDENE20 MG PO (00:28)
[2018-05-18] MEDS ORDERED: VITAMIN B-12500 MCG PO (00:29)
[2018-05-18 00:30] VITALS: BP 111/76
[2018-05-18 03:19] VITALS: BP 160/79
--- NOTE | 2018-05-18 06:31 | NUR ---
2234: RECIEVED PATIENT FROM ER PER CART. PATIENT TURNS IN BED WITHOUT PROBLEMS. NOTED WOUND TO RIGHT BUTTOCK. ADMISSION PROCESS STARTED. 399: ADMISSION PROCESS COMPLETED. KEPT ON BEDREST TONIGHT DUE TO SYNCOPE, INFUSING 1L NS. WORKING ON GOALS AND PLAN OF CARE FOR NOC. SLEPT MOST OF SHIFT. REMAINS ORIENTED TO SELF BUT COOPERATIVE. INCONTINENT OF LARGE AMOUNT FLUIDS. CONTINUE TO ASSESS.
[2018-05-18 08:30] VITALS: BP 118/77
--- NOTE | 2018-05-18 13:17 | NUR ---
Case opened to follow for dc planning. Pt known to cm from recent visits in Jan 2018 and Feb 2018. She went to SNf both times firt to [facility] then to [facility] before returning home with her dtr and HH. She was dc'd from services with [facility] 2 weeks ago and her dtr Hortensia reports she had been doing well. She just went to the [facility] loop [facility] a couple of days ago. They are hoping her "passing out" is medication related but concerned that she may be weaker than prior to admission. They are receptive to HH re evaluations at [facility] and would like to use [facility] again. [facility] notified. Will ask for therapy evals and follow along.
[2018-05-18 14:47] VITALS: BP 140/52
[2018-05-18 20:00] VITALS: BP 152/54
--- NOTE | 2018-05-18 20:35 | NUR ---
ASSUMED CARE OF PT AT 0715. PT IS A&O TO SELF. IS ON ROOM AIR. USES CPAP AT HS. YARELISLJDONLYNSEY BROUGHT IN FROM HOME. IS AT BEDSIDE. PT DENIES PAIN. IS UP WITH 1 ASSIST, BG, TO BEDSIDE COMMODE. HAS REDDENED AREA ON RIGHT BUTTOCKS. PIC IN CHART. Z GUARD APPLIED. PT IS Q2H TURNS, IS ABLE TO TURN SELF. DENIES PAIN. IS STABLE. LABS & VITALS REVIEWED. WILL CONTINUE TO MONITOR. FAMILY AT BEDSIDE.
--- NOTE | 2018-05-19 02:04 | NUR ---
PT CONFUSED DURING THE NIGHT PT SLEPT ON AND OFF PT TURNED Q2 PT DID NOT TRY TO GET UP UNASSISTED NO ISSUES OVERNIGHT.
[2018-05-19 04:04] VITALS: BP 151/53
[2018-05-19 04:23] LABS: ALBUMIN 2.9 g/dL (3.4-5.0); PHOSPHORUS 3.5 mg/dL (2.5-4.9); POTASSIUM 4.3 mmol/L (3.5-5.1)
[2018-05-19 07:29] VITALS: BP 168/79
[2018-05-19 13:40] VITALS: BP 160/74
[2018-05-19 19:30] VITALS: BP 105/72
--- NOTE | 2018-05-19 19:58 | NUR ---
Assumed pt care this am, daughter was at bedside. POC followed, oral and insulin as needed was given. VS stable. OT worked with the pt, she was able to get to the toilet from the bed. Has her cipap in the room. Pt was turned every 2 hours due to her wound on her scarum.
[2018-05-20 04:20] VITALS: BP 129/87
[2018-05-20 05:09] LABS: CALCIUM 10.3 mg/dL (8.5-10.1); CREATININE 1.8 mg/dL (0.6-1.0); POTASSIUM 4.5 mmol/L (3.5-5.1)
[2018-05-20 09:03] VITALS: BP 126/79
[2018-05-20] MEDS ORDERED: CEFUROXIME250 MG PO (09:43)
[2018-05-20] MEDS ORDERED: DEMADEX20 MG PO (09:44)
[2018-05-20 14:53] VITALS: BP 142/45
[2018-05-20 19:34] VITALS: BP 151/63
--- NOTE | 2018-05-20 19:42 | NUR ---
ASSUMED CARE AT 0700. PT ALERT TO SELF. PT IS PLEASANTLY CONFUSED WITH HISTORY OF DEMENTIA. PT HAS BEEN INCONTINENT OF URINE X4 THIS SHIFT. PT IS UNABLE TO TELL WHEN SHE IS WET SO PT REQUIRES FREQUENT CHECKS TO MAKE SURE SHE IS DRY. PT DOES NOT HAVE ANY SKIN BREAKDOWN AT THIS TIME. PT GOT UP TO CHAIR WITH ONE ASSIST AND GAIT BELT. FALL PRECAUTIONS IN PLACE, BED AND CHAIR ALARM ON.
[2018-05-21 04:30] VITALS: BP 116/76
[2018-05-21 08:18] VITALS: BP 121/76
--- NOTE | 2018-05-21 08:52 | NUR ---
PROGRESS VSS. PT SLEPT THROUGH SHIFT INCONTINENT X 1 TELE INTACT CONTINUE POC.
[2018-05-21 13:44] VITALS: BP 121/76
[2018-05-21 14:06] VITALS: BP 121/76
--- NOTE | 2018-05-21 18:49 | NUR ---
PT DISCHARGED HOME WITH DAUGHTER TODAY, HOME HEALTH CARE IS THE EXPECTATION. PT LEFT BASELINE A&O 1-2. ALL BELONGINGS WERE SENT AND PRESCRIPTION AND DISCHARGE PAPERWORK SIGNED AND VERBALLY UNDERSTOOD BY DAUGHTER. PICTURE OF WOUND TAKEN TODAY AND PLACED IN CHART.
== END 2018-05-21 15:37 | disposition home health service (06) | DRG 683 ==
LOC: ER 16:39 → EROBS 20:15 → 4W 20:15 → ENTRNSPT 05-21 14:44 → EDTRNSPTSTS 05-21 14:48 → 4W 05-21 15:37
PROVIDERS: Emergency Medicine; ADMIT Hospitalist
DX: N17.9 Acute kidney failure, unspecified (principal); N39.0 Urinary tract infection, site not specified; E46 Unspecified protein-calorie malnutrition; N18.3 Chronic kidney disease, stage 3 (moderate); Z66 Do not resuscitate; I48.2 Chronic atrial fibrillation; E11.40 Type 2 diabetes mellitus with diabetic neuropathy, unspecified; I12.9 Hypertensive chronic kidney disease with stage 1 through stage 4 chronic kidney disease, or unspecified chronic kidney disease; Z90.49 Acquired absence of other specified parts of digestive tract; M62.84 Sarcopenia; M19.90 Unspecified osteoarthritis, unspecified site; E11.22 Type 2 diabetes mellitus with diabetic chronic kidney disease; F03.90 Unspecified dementia, unspecified severity, without behavioral disturbance, psychotic disturbance, mood disturbance, and anxiety; Z86.73 Personal history of transient ischemic attack (TIA), and cerebral infarction without residual deficits; K59.09 Other constipation; Z98.41 Cataract extraction status, right eye; Z98.42 Cataract extraction status, left eye; Z88.2 Allergy status to sulfonamides; Z87.891 Personal history of nicotine dependence; Z68.28 Body mass index [BMI] 28.0-28.9, adult
CPT/HCPCS: 10045

== ENCOUNTER 2018-05-27 10:42 | Inpatient (IN) | payer OTHER ==
[~2018-05-27] VITALS: Ht 172.7 cm; Wt 90.7 kg
[2018-05-27 10:42] VITALS: BP 180/66
[~2018-05-27 10:42] MED LIST changes: +FELDENE20 MG PO
[2018-05-27 11:05] LABS: URINE BILIRUBIN NEGATIVE (Negative); URINE BLOOD NEGATIVE (Negative); URINE CLARITY CLEAR; URINE COLOR YELLOW; URINE GLUCOSE-RANDOM* NEGATIVE (Negative); URINE KETONES NEGATIVE (Negative); URINE LEUKOCYTES-REFLEX NEGATIVE (Negative); URINE NITRITE-REFLEX NEGATIVE (Negative); URINE PROTEIN (DIPSTICK) TRACE (Negative); URINE UROBILINOGEN 0.2 E.U./dl (0.2-1.0)
[2018-05-27 11:08] LABS: HEMATOCRIT 39.8 % (37.0-47.0); HEMOGLOBIN 13.3 gm/dL (12.0-15.0); MCH 29.6 pg (26.0-34.0); MCHC 33.3 g/dL (28.0-37.0); MCV 88.9 fL (80.0-100.0); RBC 4.47 mil/uL (4.20-5.00); RDW 15.5 % (10.5-14.5); WBC 13.3 thou/uL (4.0-11.0)
[2018-05-27 11:14] LABS: ANION GAP 10 mmol/L (7-16); BUN 37 mg/dL (7-18); CALCIUM 10.8 mg/dL (8.5-10.1); CHLORIDE 101 mmol/L (98-107); CO2 26 mmol/L (21-32); CREATININE 1.7 mg/dL (0.6-1.0); GLUCOSE 192 mg/dL (74-106); POTASSIUM 4.1 mmol/L (3.5-5.1); SODIUM 137 mmol/L (136-145)
[2018-05-27 11:22] LABS: ALBUMIN 3.1 g/dL (3.4-5.0); SGOT 24 U/L (15-37); SGPT 27 U/L (30-65); TOTAL BILIRUBIN 0.3 mg/dL (<0.1-1.0); TOTAL PROTEIN 7.2 g/dL (6.4-8.2); TROPONIN-I <0.06 ng/mL (<0.06)
--- NOTE | 2018-05-27 12:00 | EKG ---
[place] [address] [facility] [employer] [place] [address] ELECTROCARDIOGRAM REPORT Name: JASEN GREEN [facility]: [facility] [id number] ������������������ Admission: 05/27/18 ������������������ Attend Phys: Discharge: ������������������ Date of : 30 Report #: [id number] ����������������������������������������������������������������� [id number] THIS REPORT FOR: //name// [facility] ED Test Date: 2018-05-27 Test Time: 10:52:22 Pat Name: JASEN GREEN Department: Room: Gender: F Electronic Sales And Service Technician: AMADEO : 1930 Requested By: Marycarmen Kern Order Number: [id number] MD: Deven Mota Measurements Intervals [place] Rate: 79 P: OR: QRS: 73 QRSD: 101 T: 46 QT: 390 QTc: 448 Interpretive Statements Atrial fibrillation Otherwise no significant abnormality Compared to ECG 05/17/2018 16:48:42 No significant change was found Electronically Signed On 05-27-2018 12:00:36 CDT by Deven Mota [email or web address] ��������������������������������������������� <ELECTRONICALLY SIGNED> ���������������������������������������� By: Deven Mota MD, [facility] ��������������������������������������������� 05/27/18 1200 1052 1052 Deven Mota MD, FACC /EPI
[2018-05-27 12:41] LABS: BACTERIA 1-9 Few /HPF (None Seen); CASTS None Seen /LPF (None Seen); CRYSTALS None Seen /LPF (None Seen); SQUAMOUS None Seen /LPF (0-3); URINE RBC 0-2 Rare /HPF (0-2); URINE WBC 0-5 Rare /HPF (0-5)
[2018-05-27 14:02] VITALS: BP 167/63
[2018-05-27 14:16] VITALS: BP 180/39
[2018-05-27 14:33] VITALS: BP 181/90
[2018-05-27] MEDS ORDERED: LASIX 40 MG TAB40 M2 PO (14:38)
[2018-05-27] MEDS ORDERED: VOLTAREN GEL 1100 G2 TOP (14:39)
[2018-05-27] MEDS ORDERED: POTASSIUM20 PO (14:39)
--- NOTE | 2018-05-27 16:37 | NUR ---
PATIENT ACCOMPANIED BY DAUGHTER ADMITTED TO ROOM AT THIS TIME. SHE KNOWS WHERE SHE IS BUT DOES NOT KNOW THE DAY OR TIME. SHE IS QUITE PLEASANT. DOES NOT SEEM TO BE IN PAIN. HAD AN EPISODE OF SYNCOPE EARLIER TODAY IN BATHROOM WHILE SHE WAS HAVING A CONSTIPATED BM. DAUGHTER LOWERED HER TO THE FLOOR. ON FALL PRECAUTION. WILL CONT WITH PLAN OF CARE.
[2018-05-28 04:20] VITALS: BP 124/85
--- NOTE | 2018-05-28 07:22 | NUR ---
progress pt alert and oriented to self, place and situation. pleasant and cooperative. iv sl intermittent antibiotics given as ordered. pt voided 300 cc urine at start of shift bladderscan revealed 332 christiano lomeli notified order to straight cath if over 400cc's. pt incontinent of large amounts of urine x2. to be bladderscanned this am. vss, tele intact continue poc.
[2018-05-28 07:27] VITALS: BP 122/69
[2018-05-28 08:35] LABS: HEMATOCRIT 37.8 % (37.0-47.0); HEMOGLOBIN 12.7 gm/dL (12.0-15.0); MCH 29.7 pg (26.0-34.0); MCHC 33.6 g/dL (28.0-37.0); MCV 88.2 fL (80.0-100.0); RBC 4.28 mil/uL (4.20-5.00); RDW 15.7 % (10.5-14.5); WBC 10.3 thou/uL (4.0-11.0)
[2018-05-28 08:47] LABS: CREATININE 1.5 mg/dL (0.6-1.0); POTASSIUM 3.7 mmol/L (3.5-5.1)
--- NOTE | 2018-05-28 09:40 | NUR ---
ASSESSMENT: CM REVIEWED CHART AND MET WITH PATIENT AND HER DAUGHTER LUIS MIGUEL WHO SHE LIVES WITH AT THE BEDSIDE. PT WAs admitted WITH SYNCOPE. PT LIVES IN A HOUSE WITH HER DAUGHTER. PT HAS TWO STEPS TO ENTER THE HOME WITH NO HANDRAILS. PT DOES NOT HAVE TO USE STEPS ONCE INSIDE. DAUGHTER REPORTS PATIENT HAS TWO WALKERS AT HOME WELL A CPAP, GRAB BAR, SHOWER CHAIR. PT IS CURRENTLY IN SERVICES WITH [facility] AND CM NOTIFIED [facility] THAT PATIENT IS HERE AND THEY ARE FOLLOWING. PT HAS ALSO BEEN TO [facility] IN THE PAST. DAUGHTER AND PT HOPEFUL SHE WILL BE ABLE TO RETURN HOME WITH [facility]. PT/OT EVALS PENDING. CM WILL CONTINUE TO FOLLOW TO ASSIST NEEDED.
[2018-05-28 16:12] VITALS: BP 112/79
[2018-05-28 19:14] VITALS: BP 123/102
--- NOTE | 2018-05-28 19:55 | NUR ---
HAD MRI/MRA AND EEG TODAY. TOLERATED WELL. INCONT OF BOWEL AND BLADDER. KEPT CLEAN AND DRY. AFIB ON MONITOR. CONT WITH PLAN OF CARE.
--- NOTE | 2018-05-29 02:21 | NUR ---
ASSESSMENT: PT REMAIN ALERT AND ORIENT TIMES TWO, SOME FORGETFULNESS AT TIMES. DENIES PAIN AND SYNCOPE THIS SHIFT. VSS, AFEBRILE. BLADDER SCANNED POST VOID WITH RESIDUALS > THAN 300. INCONTINENT TO BOWEL AND BLADDER. CPAP AT [facility] WITH CLEAR TO DIMINISHED LUNG SOUNDS. AFIB PER MONITOR. TURNED EVERY TWO HOURS. TOLERATING REG DIET. SLOW PROGRESS TOWARDS DC GOALS. WILL CONTINUE TO MONITOR.
[2018-05-29 03:56] VITALS: BP 168/96
--- NOTE | 2018-05-29 04:50 | NUR ---
ASSESSMENT: PT'S SON IRON [place], CALLED AND TALKED TO THE PHYSICAL PLANT EMPLOYEE KAYCEE ABOUT THE BEHAVIOR OF HIS MOM. STATING THAT SHE HAS DONE THIS BEFORE, "ASKING FOR AN INCREASE IN PAIN MEDS, GET ANGRY AND WANTS TO GO AMA WHEN THINGS DON'T GO HER WAY". FOR FURTHER INFO SEE, CHARGE NURSES KAYCEE'S NURSING NOTE. PT IS STILL UPSET WITH THE "WHOLE GAMMITT" OF NOT GETTING WHAT SHE WANTS. PT YELLS AND SNATCHES THINGS, THROWS THINGS AND TOPS IT ALL OFF WITH CRYING ABOUT BEING MISTREATED, HOMELESS...BECAUSE HER SON IS TRYING TO KICK HER OUT AND HAVE HIS GIRL-FRIEND TO MOVE IN. PT FINALLY AGREED TO TAKING A HYDROXYZINE FOR ANXIETY. PT'S SON DOES NOT WANT THE PT TO KNOW THAT HE CALLED THE UNIT, SAYING THAT WILL ONLY MAKE MATTERS WORSE AND HE DID NOT WANT ANY MORE DRAMA.
[2018-05-29 07:29] VITALS: BP 109/67
--- NOTE | 2018-05-29 09:45 | NUR ---
ON-GOING ASSESSMENT: CM REVIEWED CHART AND MET WITH PT AND HER DAUGHTER AT THE BEDSIDE. CM DISCUSSED DISCHARGE PLANNING. 5N EVALUATED PATIENT THIS AM AND FELT SHE IS MORE APPROPRIATE FOR SNF. CM SPOKE WITH PATIENTS DAUGHTER AND SHE AGREES AND WANTED A REFERRL SENT TO [facility] PATIENT HAD BEEN THERE BEFORE. CM NOTIFIED FURNITURE ASSEMBLER AND INSTALLER TO ASSIST WITH REFERRAL. CM WILL CONTIUE TO FOLLOW.
--- NOTE | 2018-05-29 10:01 | NUR ---
paraplanner sent referral to [facility] ([facility]). Included in referral was PT katiana from 05/28/18. Once today's therapy is in, will send as patient is [employer].
[2018-05-29] MEDS ORDERED: FLOMAX0.4 MG PO (11:47)
--- NOTE | 2018-05-29 16:46 | NUR ---
PATIENT HAS BEEN QUITE PLEASATN TODAY. CONT ON THERAPY (PT/OT). SHE DOES NOT SEEM TO BE IN PAIN AT THIS TIME. RESPIRATIONS ARE NON LABORED. DAUGHER HERE WITH PATIENT. NO NEW CONDITIONS. WILL CONT WITH PLAN OF CARE.
[2018-05-29 17:05] VITALS: BP 144/85
[2018-05-29 19:19] VITALS: BP 100/62
[2018-05-30 03:17] VITALS: BP 113/70
[2018-05-30 05:26] LABS: ABSOLUTE NEUTROPHILS 8.8 thou/uL (1.4-8.2); BASOPHILS 0.9 % (0.0-2.0); EOSINOPHILS 5.1 % (0.0-3.0); HEMATOCRIT 35.8 % (37.0-47.0); HEMOGLOBIN 11.9 gm/dL (12.0-15.0); MCH 29.2 pg (26.0-34.0); MCHC 33.2 g/dL (28.0-37.0); MCV 87.7 fL (80.0-100.0); MONOCYTES 6.6 % (1.0-8.0); PLATELET COUNT 297 thou/uL (150-400); POLYS 74.4 % (36.0-66.0); RBC 4.09 mil/uL (4.20-5.00); RDW 15.6 % (10.5-14.5); WBC 11.8 thou/uL (4.0-11.0)
[2018-05-30 05:35] LABS: CALCIUM 10.7 mg/dL (8.5-10.1); CREATININE 1.8 mg/dL (0.6-1.0); POTASSIUM 3.6 mmol/L (3.5-5.1)
--- NOTE | 2018-05-30 06:42 | NUR ---
Pt. oriented to person only. Tolerating room air well. Had CPAP on at HS. No syncopal episode. Bed alarm on. A fib with controlled rate. Repositioned for comfort. Incontinent of bladder . Complete bed bath given and external female cath placed. Post void residual < 200. Moisture barrier to right buttocks. Pt. discontinued IV this am. Will continue to monitor.
[2018-05-30 07:41] VITALS: BP 107/55
[2018-05-30 08:15] VITALS: BP 108/55
--- NOTE | 2018-05-30 11:19 | NUR ---
care of pt asssumed at @ ~0700. pt resting quietly and comfortably in bed w/ cpap on this am. pt awakend, drowsy and cpap removed. pt on room air in daytime. pt set up for breakfast and had a good appetite for food and fluid. pt's daughter at bs, anticipating dc to [facility] at 1400 today. pt w/ external female catheter in place and functional. daughter request myralax for her mother this am, given. report called to Dali/geovanna @ [phone]. chart copied.
[2018-05-30] MEDS ORDERED: MIRALAX17 GM PO (12:03)
--- NOTE | 2018-05-30 13:36 | NUR ---
ON-GOING ASSESSMENT: cm reviewed CHART AND SPOKE WITH LIASON FROM [facility] WHO STATES THEY RECEIVED INSURANCE AUTH TO ACCEPT PT FOR ADMISSION. CM NOTIFIED PT AND HER DAUGHTER WELL ATTENDING AND BEDSIDE RN. CM PROVIDED BEDSIDE RN WITH THE NUMBER FOR REPORT. CHART COPY WAS ORDERED. TRANSPORTATION WAS ARRANGED FOR 1400, PT AND DAUGHTER WELL BEDSIDE RN NOTIFIED. CM FAXED D/C ORDERS TO [facility] AND CONFIRMED THEY RECEIVED THEM. PT AND DAUGHTER REPORT NO FURTHER QUESTIONS AT THIS TIME.
--- NOTE | 2018-05-30 17:58 | EEG ---
[facility] [place] [address] ELECTROENCEPHALOGRAM Name: JASEN GREEN Room #: 352-P [facility] IN M.R.#: [id number] ������������������ Admission: 05/27/18 ������������������ Attend Phys: Edenilson Trujillo MD Discharge: 05/30/18 ������������������ Date of : 30 Report #: [id number] ����������������������������������������������������������������� [id number] THIS REPORT FOR: //name// CC: Edenilson Darden DATE OF SERVICE: 05/28/2018 This patient is being evaluated for syncope. The patient has significant amount of underlying dementia. EEG was done by placing the electrodes by standard 10-20 system of electrode placement. Both referential and sequential montages were used for recording. Background activity in this patient's EEG is about 7 Hz and 30 microvolt. It is a symmetrical activity. It is very poorly formed background activity. The patient became drowsy and that was associated with bilateral slowing and vertex sharp waves. Photic stimulation was unremarkable. Throughout the record, no active epileptiform activity was noticed. IMPRESSION: This is an abnormal electroencephalogram because it is very disorganized and poorly formed. There is a nonspecific abnormality, which can occur with encephalopathy, effect of psychotropic medication, dementia, etc. Clinical correlation is recommended. ���������������������������������������� <ELECTRONICALLY SIGNED> ���������������������������������������� By: Jorden Vasquez MD ��������������������������������������������� 05/30/18 1758 1632 14 Jorden Vasquez MD /nt
--- NOTE | 2018-05-30 18:01 | HC ---
[facility] [place] [address] CONSULTATION Name: JASEN GREEN Room #: 352-P [facility] IN M.R.#: [id number] Admission: 05/27/18 ������������������ Attend Phys: Edenilson Trujillo MD Discharge: 05/30/18 ������������������ Date of : 30 Report #: [id number] THIS REPORT FOR: //name// CC: Edenilson Darden DATE OF SERVICE: 05/28/2018 HISTORY OF PRESENT ILLNESS: This is an 87-year-old female patient who was evaluated by me for an episode of syncope. All the records were reviewed and I talked to the patient's [id number]. She was on the toilet and she tried to get up and she had an episode of syncope. It is not clear what her heart rate and blood pressure was that time. It is not clear what her blood sugar was. It looks like she had episodes like this in the past. She appeared to be back to her baseline and the baseline is pretty significant dementia. REVIEW OF SYSTEMS: Indicate that this patient was seen by Cardiology last time. Because of multiple comorbidities, they did not think the patient is anticoagulation candidate. She has atrial fibrillation and she also has multiple other things like congestive heart failure, urinary retention, chronic kidney disease, severe dementia where she does not know month or year, hydronephrosis, hypertension and sarcopenia. She does have a documented stroke in the past. She probably has some vasovagal spell in the past. A 14-point review of system was carried out from the record only. This is what I can tell. She does have a history of constipation, sleep apnea, neuropathies, back pains, hip surgeries, CVA, diabetes and appendectomy. PAST MEDICAL HISTORY: Positive for stroke when she was admitted here last time. FAMILY HISTORY: Negative for early age stroke. SOCIAL HISTORY: She does have a history of smoking. PHYSICAL EXAMINATION: NEUROLOGICAL: Indicate she is alert. She does not know what month it is, she does not know what day it is. She has a finding consistent with severe dementia. Speech was difficult to evaluate. Memory and fund of knowledge is markedly diminished. Cranial nerve examination 2 through 12 was attempted. She did not cooperate, but I do not see much focality. She moves all 4 extremities. Tone looks symmetrical. Reflexes are diminished. I could not look at the fundus because she could not cooperate. There is no meningeal sign. She does not understand much instruction for other exam like cerebellar sign. GENERAL: She is moderately built individual who does not have any dysmorphic features of eyes, ears and face. HEENT: Vision and hearing looks adequate. HEART: She has a history of atrial fibrillation. [facility] [address] [place] [address] CONSULTATION Name: JASEN GREEN Room #: 352-P [facility] IN M.R.#: [id number] Admission: 05/27/18 ������������������ Attend Phys: Edenilson Trujillo MD Discharge: 05/30/18 ������������������ Date of : 30 Report #: [id number] LUNGS: No respiratory difficulty or rhonchi was noted. EXTREMITIES: Pulses are difficult to feel. VITAL SIGNS: Blood pressure is 122/69, pulse is 99 and temperature is 98.2. LABORATORY DATA: Labs indicate a white count of 10.3 and GFR is only 33. I reviewed her old records. She had a documented stroke last time. MRA shows multiple abnormalities. IMPRESSION: This patient has a documented stroke in the past. She has numerous abnormalities on the MRI. That predisposed her to stroke. On top of that, she has a history of atrial fibrillation and has not been anticoagulated because of her severe dementias and multiple other comorbidities. Family wanted to proceed with MRI and we can see if there was another stroke in this patient. Limited thing can be done and my suggestion will be to continue very conservative care in this patient. I talked that to [id number] and we will talk to the daughter when she is here. RECOMMENDATIONS: 1. MRI. 2. MRA. 3. I will check an EEG because dementias are predisposed to stroke. 4. From the description, it would appear the cause of her symptoms are probably going to be cardiac or vasovagal spell but she is so predisposed to have strokes, we will do the workup because the family wants to proceed with that; otherwise, I will suggest very conservative care in this patient. Thank you very much for this referral. ��������������������������������������������� <ELECTRONICALLY SIGNED> ���������������������������������������� By: Jorden Vasquez MD ��������������������������������������������� 05/30/18 1801 [id number] Jorden Vasquez MD /nt
== END 2018-05-30 14:18 | DRG 74 ==
LOC: ER 10:42 → 3W 13:42 → EROBS 13:42 → 3W 14:22
PROVIDERS: Student in an Organized Health Care Education/Training Program; ADMIT Hospitalist
DX: G90.8 Other disorders of autonomic nervous system (principal); N17.9 Acute kidney failure, unspecified; N13.30 Unspecified hydronephrosis; I48.91 Unspecified atrial fibrillation; I12.9 Hypertensive chronic kidney disease with stage 1 through stage 4 chronic kidney disease, or unspecified chronic kidney disease; E78.5 Hyperlipidemia, unspecified; E11.22 Type 2 diabetes mellitus with diabetic chronic kidney disease; F03.90 Unspecified dementia, unspecified severity, without behavioral disturbance, psychotic disturbance, mood disturbance, and anxiety; R33.9 Retention of urine, unspecified; K80.20 Calculus of gallbladder without cholecystitis without obstruction; N18.3 Chronic kidney disease, stage 3 (moderate); E11.42 Type 2 diabetes mellitus with diabetic polyneuropathy; M62.84 Sarcopenia; G47.33 Obstructive sleep apnea (adult) (pediatric); K59.09 Other constipation; M19.90 Unspecified osteoarthritis, unspecified site; F17.210 Nicotine dependence, cigarettes, uncomplicated; Z90.49 Acquired absence of other specified parts of digestive tract; Z98.42 Cataract extraction status, left eye; Z98.41 Cataract extraction status, right eye; Z86.73 Personal history of transient ischemic attack (TIA), and cerebral infarction without residual deficits; Z79.01 Long term (current) use of anticoagulants; Z79.899 Other long term (current) drug therapy; Z88.2 Allergy status to sulfonamides
CPT/HCPCS: 10879